=== PATIENT | male | born 1970 | race Caucasian/White ===

== ENCOUNTER 2017-01-26 20:02 | Emergency (ER) | payer OTHER ==
[~2017-01-26] VITALS: Ht 182.9 cm; Wt 121.6 kg
[~2017-01-26 20:02] MED LIST: ADULT LOW DOSE81 M1 PO; ASPIRIN E.C.81 M2 PO; AZOR 5/40 MG1 TABLET PO; BABY ASPIRIN81 M1 PO; BYSTOLIC2.5 MG PO; BYSTOLIC5 MG PO; GLUCOSAMINE &1 EACH PO; PRADAXA150 MG PO; Pradaxa PO; Tylenol Regular Stre PO; XARELTO15 MG PO
[2017-01-26 20:59] LABS: MCH 28.8 PG (29.0-34.0); MCHC 33.6 G/DL (30.0-36.0); MCV 85.7 FL (86-99); MEAN PLAT.VOLUME 10.8 uM^3 (9.0-12.4); PLATELET COUNT 250 K/uL (156-360); RBC DIS.WIDTH-CV 13.1 % (11.8-14.6); RBC DIS.WIDTH-SD 40.4 % (39-53); WHITE BLOOD COUNT 8.1 K/uL (4.1-10.2)
[2017-01-26 21:12] LABS: CHLORIDE 108 mEq/L (99-109); POTASSIUM 3.7 mEq/L (3.7-5.4); SODIUM 141 mEq/L (136-147)
[2017-01-26 21:13] LABS: MAGNESIUM 2.2 mg/dL (1.3-2.7)
[2017-01-26 21:14] LABS: GLUCOSE 86 mg/dL (70-99)
[2017-01-26 21:15] LABS: ANION GAP 11 MEQ/L (2-14)
[2017-01-26 21:18] LABS: GFR ESTIMATE (CALCULATED) > 59 mL/min/; UREA NITROGEN (BUN) 11 mg/dL (9-23)
[2017-01-26 21:24] LABS: TROP-I INTERPRETATION NEGATIVE; TROPONIN-I < 0.01 ng/mL (0.0-0.30)
[2017-01-26 22:28] VITALS: BP 113/80
== END 2017-01-26 22:32 | disposition home or self-care (01) ==
LOC: EME 20:02
PROVIDERS: Physician Assistant Medical
DX: R00.2 Palpitations (principal); I10 Essential (primary) hypertension
CPT/HCPCS: 71010; 80048; 83735; 84484; 85027; 93005; 99281; 99284